=== PATIENT | male | born 1950 | race Caucasian/White ===

== ENCOUNTER → 2019-06-07 | Outpatient (CLI) | payer BC ==
[~2019-06-07] MED LIST: CETIRIZINE; ENTEX; HCTZ; LISINOPRIL10 MG PO; TRICOR145 MG PO; ZYRTEC 10MG PO
== END ==
LOC: COL.RAD 09:12
DX: R31.29 Other microscopic hematuria (principal)

== ENCOUNTER → 2020-02-25 | Outpatient (CLI) | payer BC | LOC: ZCOL.LAB 16:08 | DX: Z20.828 Contact with and (suspected) exposure to other viral communicable diseases (principal) ==